=== PATIENT | female | born 1975 | race Caucasian/White ===

== ENCOUNTER → 2020-07-15 | Outpatient (CLI) | payer BC ==
[~2020-07-15] MED LIST: BENTYL10 MG PO; CIPRO500 MG PO; CIPROFLOXACIN500 M1 PO; HYDROCODONE-AP1 EAC6 PO; HYDROCODONE-APA1 TA1 PO; IBUPROFEN 800800 M1 PO; LORTAB 5 MG/5001 TAB PO; NEURONTIN300 MG PO; NOHOMEMEDICATIONS; NORCO 5-325 TA1 EACH PO; PEPCID20 MG PO; PHENAZOPYRIDIN200 M2 PO; PRILOSEC 20 MG20 MG PO; TRAMADOL 50 MG50 MG PO; ZANTAC 150MG T150 MG PO; ZOFRAN ODT4 MG PO
== END ==
LOC: M.PC 08:37
PROVIDERS: ATTEND Physical Medicine & Rehabilitation
DX: M47.26 Other spondylosis with radiculopathy, lumbar region (principal)